=== PATIENT | female | born 2000 | race Hispanic/Latino ===

== ENCOUNTER 2024-08-11 18:14 | Emergency (ER) | payer SELFPAY ==
[~2024-08-11] VITALS: Ht 175.3 cm; Wt 70.3 kg
[2024-08-11 19:50] LABS: CORONAVIRUS COVID-19 AG NEGATIVE (NEGATIVE); INFLUENZA A AG NEGATIVE (NEGATIVE); INFLUENZA B AG NEGATIVE (NEGATIVE); STREPTOCOCCUS GRP A ANTIGEN NEGATIVE (NEGATIVE)
[2024-08-11 20:30] VITALS: PULSE 99; RESP 18; TEMP 98.7; O2SAT 100
[2024-08-11] MEDS ORDERED: AMOX TR-K CLV1 EAC2 PO (20:30)
[2024-08-11] MEDS ORDERED: ONDANSETRON ODT4 MG SL (20:30)
[2024-08-11] MEDS ORDERED: MEDROL4 M2 PO (20:30)
== END 2024-08-11 20:36 | disposition home or self-care (01) ==
LOC: ER 20:24
DX: J32.1 Chronic frontal sinusitis (principal); J01.00 Acute maxillary sinusitis, unspecified; R51.9 Headache, unspecified
CPT/HCPCS: 83518; 87070; 99282